=== PATIENT | male | born 1955 | race American Indian/Alaskan Native ===

== ENCOUNTER 2021-06-11 12:45 | Emergency (ER) | payer MEDICARE ==
[2021-06-11] MEDS ORDERED: SODIUM CHLORIDE 0.9% 1000 ML 1,000 ML IV ONE ×2 (13:12→15:23)
[2021-06-11 13:40] LABS: Basophils % (Auto) 0.4 % (0.0-1.8); Eosinophils # (Auto) 0.3 K/mm3 (0.0-0.4); Eosinophils % (Auto) 5.6 % (0.0-4.3); Hematocrit 39.1 % (35.5-45.6); Lymphocytes # (Auto) 1.1 K/mm3 (1.2-5.4); Lymphocytes % (Auto) 19.6 % (13.4-35.0); Mean Corpuscular HGB Conc 33 % (32-34); Mean Corpuscular Volume 103 fl (84-94); Monocytes # (Auto) 0.6 K/mm3 (0.0-0.8); Monocytes % (Auto) 10.9 % (0.0-7.3); Platelet Count 261 K/mm3 (140-440); Red Blood Count 3.79 M/mm3 (3.65-5.03); Red Cell Distribution Width 12.9 % (13.2-15.2)
[2021-06-11 14:00] LABS: Alanine Aminotransferase 13 units/L (7-56); Albumin 3.3 g/dL (3.9-5); BUN/Creatinine Ratio 23; Blood Urea Nitrogen 18 mg/dL (9-20); Hemolysis Index 4
[2021-06-11] MEDS ORDERED: SODIUM CHLORIDE IRRI 500 ML 500 ML IR ONE (14:55)
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
== END 2021-06-11 15:50 | disposition left against medical advice (07) ==
LOC: ED 12:45
DX: F19.10 Other psychoactive substance abuse, uncomplicated (principal); I10 Essential (primary) hypertension; F17.200 Nicotine dependence, unspecified, uncomplicated; F12.90 Cannabis use, unspecified, uncomplicated
CPT/HCPCS: 36415; 80053; 85025; 96360; 96361; 99283; J7030; 80320; G0480